=== PATIENT | male | born 1970 | race Caucasian/White ===

== ENCOUNTER 2018-02-21 14:49 | Emergency (ER) | payer MEDICAID, OTHER ==
[2018-02-21] MEDS ORDERED: IBUPROFEN 600 MG TAB PO ONE (15:58)
--- NOTE | 2018-02-21 16:12 | EDPHY ---
H & P Time Seen by Provider: 02/21/18 15:56 HPI/ROS: CHIEF COMPLAINT: Right ankle pain HISTORY OF PRESENT ILLNESS: The patient is a [id number] male presents emergency department after stepping out of struck in rolling his right ankle. The patient states he felt his lateral ankle strike the ground and felt a pop. He now has severe lateral right ankle pain. He has benign able to ambulate on his ankle. No numbness or tingling. Patient previously fracture of his tibia but this did not require surgical repair. REVIEW OF SYSTEMS: My complete review of systems is negative except as mentioned in the HPI. Past Medical/Surgical History: Includes fracture tibia Smoking Status: Never smoked Physical Exam: Vitals noted General Appearance: Alert and no distress. Head: Pupils equal. Normal. Respiratory: No respiratory distress. Cardiac: regular rate and rhythm. Extremities: Patient has mild swelling over his right lateral malleolus. There is tenderness palpation over the right lateral malleolus. Mild calcaneal tenderness. No proximal tib-fib tenderness to palpation. No tenderness to the foot. Neurovascular intact distally. No laceration. Skin: No rashes or lesions. Neuro: Alert. Normal mood and affect. Constitutional: Initial Vital Signs Temperature (C) 36.7 C 02/21/18 14:51 Heart Rate 75 02/21/18 14:51 Respiratory Rate 20 02/21/18 14:51 Blood Pressure 127/85 H 02/21/18 14:51 O2 Sat (%) 97 02/21/18 14:51 O2 Delivery Mode Room Air Allergies/Adverse Reactions: No Known Allergies Allergy (Verified 02/21/18 14:51) Home Medications: Medication Instructions Recorded Hydrocodone/APAP 5/325 [[place] 1 - 2 tab PO Q4 #9 tab 02/21/18 5/325 (RX)] Medical Decision Making ED Course/Re-evaluation: In the emergency department I discussed possible etiologies with the patient. I answered all his questions. Right ankle x-ray was ordered. Right ankle x-ray: Please refer the dictated report by Dr. العلي. No acute fracture dislocated noted Discussed the results with the patient. Answered all his questions. He was given a Gerry boot. He is given crutches. He was instructed to be nonweightbearing until he follows up with Orthopedics. Differential Diagnosis: My differential includes but is not limited to fracture, dislocation, contusion , sprain, strain - Data Points Medications Given: Discontinued Medications Ibuprofen (Motrin) 600 mg PO EDNOW ONE Stop: 02/21/18 15:59 Last Admin: 02/21/18 16:00 Dose: 600 mg Departure - Departure Disposition: Home, Routine, Self-Care Clinical Impression: Right ankle sprain Qualifiers: Encounter type: initial encounter Involved ligament of ankle: deltoid ligament Qualified Code(s): S93.421A - Sprain of deltoid ligament of right ankle, initial encounter Condition: Good Instructions: Ankle Sprain (ED) Additional Instructions: You need to call Orthopedics on Thursday morning to make an appointment. Wear your splint and use crutches as needed for pain. Your x-ray did not show any broken bones. Referrals: Esa Rodriguez MD [Medical Doctor] - 5-7 days, call for appt. Prescriptions: Hydrocodone/APAP 5/325 [[place] 5/325 (RX)] 1 - 2 tab PO Q4 #9 tab
[2018-02-21 16:48] VITALS: BP 117/81
== END 2018-02-21 16:51 | disposition home or self-care (01) ==
DX: S93.421A Sprain of deltoid ligament of right ankle, initial encounter (principal); W22.8XXA Striking against or struck by other objects, initial encounter; Y99.8 Other external cause status; Y93.89 Activity, other specified
CPT/HCPCS: L4386

== ENCOUNTER 2018-11-20 08:13 | Emergency (ER) | payer MEDICAID, OTHER ==
[2018-11-20] MEDS ORDERED: NS 1,000 ML IV ONE ×2 (09:06)
[2018-11-20] MEDS ORDERED: ONDANSETRON 4 MG/2 ML VIAL IVP ONE (09:06)
--- NOTE | 2018-11-20 09:06 | EDPHY ---
H & P Stated Complaint: N/V/V ABD PAIN Time Seen by Provider: 11/20/18 08:55 HPI/ROS: CHIEF COMPLAINT: Nausea vomiting diarrhea HISTORY OF PRESENT ILLNESS: 47-year-old male in the ER with his daughter is sick with similar symptoms. They both ate same food from same restaurant last evening. Approximately midnight he woke with multiple episodes of nausea, vomiting, diarrhea with diffuse nonspecific abdominal cramping. Denies: Fever, chills, recent antibiotic use, international travel, untreated water sources PRIMARY CARE PROVIDER: Dr. Pascual Sumner REVIEW OF SYSTEMS: 10 systems reviewed and negative with the exception of the elements mentioned in the history of present illness PAST MEDICAL & SURGICAL HISTORY: No pertinent medical or surgical history SOCIAL HISTORY: Nonsmoker PHYSICAL EXAM (Prior to examination, patient consented to physical exam, hands were washed and my usual and customary physical exam procedures followed) 1) GENERAL: Well-developed, well-nourished, alert and oriented. Appears uncomfortable, retching with emesis basin held to his mouth. 2) HEAD: Normocephalic, atraumatic 3) HEENT: Pupils equal, round, reactive to light bilaterally. Sclera anicteric. Nasopharynx, oropharynx, clear, no lesions. Moist Mucous membranes. 4) NECK: Full range of motion, no meningeal signs. 5) LUNGS: Clear auscultation bilaterally, no wheezes, no rhonchi, no retractions. 6) HEART: Regular rate and rhythm, no murmur, no heave, no gallop. 7) ABDOMEN: diffusely tender to palpation all quadrants with light touch, negative peritoneal sign 8) MUSCULOSKELETAL: Moving all extremities, no focal areas of tenderness, no obvious trauma. No peripheral edema or discoloration. 9) BACK: No CVA tenderness, no midline vertebral tenderness, no fluctuance, no step-off, no obvious trauma, no visual or palpable abnormality. 10) SKIN: No rash, no petechiae. 11) Psychiatric: Patient is oriented X 3, there is no agitation. DIFFERENTIAL DIAGNOSIS: My differential diagnosis includes, but is not limited to, acute appendicitis, acute cholecystitis, bowel obstruction, acute pancreatitis,, gastritis and urinary tract infection. The patient understands that this diagnosis is provisional and can never be 100% accurate. This is a partial list of diagnoses considered. These considerations are based on history , physical exam, past history and reassessment. - Personal History Current Tetanus/Diphtheria Vaccine: Yes - Medical/Surgical History Hx Asthma: No Hx Chronic Respiratory Disease: No Hx Diabetes: No Hx Cardiac Disease: No Hx Renal Disease: No Hx Cirrhosis: No Hx Alcoholism: No Hx HIV/AIDS: No Hx Splenectomy or Spleen Trauma: No Other PMH: none - Social History Smoking Status: Never smoked Constitutional: Initial Vital Signs Temperature (C) 36.9 C 11/20/18 08:23 Heart Rate 95 11/20/18 08:23 Respiratory Rate 16 11/20/18 08:23 Blood Pressure 132/79 H 11/20/18 08:23 O2 Sat (%) 95 11/20/18 08:23 O2 Delivery Mode Room Air Allergies/Adverse Reactions: No Known Allergies Allergy (Verified 02/21/18 14:51) Home Medications: Medication Instructions Recorded Hydrocodone/APAP 5/325 [[place] 1 - 2 tab PO Q4 #9 tab 02/21/18 5/325 (RX)] Ondansetron Odt [Zofran Odt] 4 mg PO Q4PRN PRN #10 tab 11/20/18 Medical Decision Making ED Course/Re-evaluation: 9:05 a.m.: Will administer IV fluids, check laboratory studies and re- evaluate. Care of patient under supervision of secondary supervising physician Dr Irwin with whom I discussed case. Re-evaluation. He is feeling improvement. He is tolerating oral intake. I re- examined his abdomen which is soft no guarding no rebound. Doubt acute surgical abdominal pathology. Doubt acute appendicitis. Doubt acute cholecystitis. I do not think that imaging studies indicated at this time. Plan will be discharge home with antiemetic, my usual and customary abdominal precautions and instructions. All questions and concerns addressed by myself. Feels comfortable being discharged. - Data Points Laboratory Results: Laboratory Results 11/20/18 09:15 11/20/18 09:15 11/20/18 11/20/18 09:15 09:15 WBC 12.73 10^3/uL H 10^3/uL (3.80-9.50) RBC 5.39 10^6/uL 10^6/uL (4.40-6.38) Hgb 16.2 g/dL g/dL (13.7-17.5) Hct 48.1 % % (40.0-51.0) MCV 89.2 fL fL (81.5-99.8) MCH 30.1 pg pg (27.9-34.1) MCHC 33.7 g/dL g/dL (32.4-36.7) RDW 12.2 % % (11.5-15.2) Plt Count 214 10^3/uL 10^3/uL (150-400) MPV 10.8 fL fL (8.7-11.7) Neut % (Auto) 93.0 % H % (39.3-74.2) Lymph % (Auto) 2.7 % L % (15.0-45.0) Mcpherson % (Auto) 3.8 % L % (4.5-13.0) Eos % (Auto) 0.0 % L % (0.6-7.6) Baso % (Auto) 0.2 % L % (0.3-1.7) Nucleat RBC Rel Count 0.0 % % (0.0-0.2) Absolute Neuts (auto) 11.84 10^3/uL H 10^3/uL (1.70-6.50) Absolute Lymphs (auto) 0.34 10^3/uL L 10^3/uL (1.00-3.00) Absolute Monos (auto) 0.48 10^3/uL 10^3/uL (0.30-0.80) Absolute Eos (auto) 0.00 10^3/uL L 10^3/uL (0.03-0.40) Absolute Basos (auto) 0.03 10^3/uL 10^3/uL (0.02-0.10) Absolute Nucleated RBC 0.00 10^3/uL 10^3/uL (0-0.01) Immature Gran % 0.3 % % (0.0-1.1) Immature Gran # 0.04 10^3/uL 10^3/uL (0.00-0.10) RBC/WBC/PLT Morphology TNP Platelet Estimate TNP Sodium 139 mEq/L mEq/L (135-145) Potassium 4.7 mEq/L mEq/L (3.5-5.2) Chloride 110 mEq/L mEq/L (97-110) Carbon Dioxide 23 mEq/l mEq/l (22-31) Anion Gap 6 mEq/L mEq/L (6-14) BUN 21 mg/dL mg/dL (7-23) Creatinine 0.9 mg/dL mg/dL (0.7-1.3) Estimated GFR > 60 Glucose 161 mg/dL H mg/dL (70-100) Calcium 8.9 mg/dL mg/dL (8.5-10.4) Total Bilirubin 0.9 mg/dL mg/dL (0.1-1.4) Conjugated Bilirubin 0.4 mg/dL mg/dL (0.0-0.5) Unconjugated Bilirubin 0.5 mg/dL mg/dL (0.0-1.1) AST 27 IU/L IU/L (17-59) ALT 43 IU/L IU/L (21-72) Alkaline Phosphatase 50 IU/L IU/L (38-126) Total Protein 7.3 g/dL g/dL (6.3-8.2) Albumin 4.3 g/dL g/dL (3.5-5.0) Lipase 165 IU/L IU/L (23-300) Medications Given: Discontinued Medications Sodium Chloride (Ns) 1,000 mls @ 0 mls/hr IV EDNOW ONE; Wide Open PRN Reason: Protocol Stop: 11/20/18 09:07 Last Admin: 11/20/18 09:20 Dose: 1,000 mls Sodium Chloride (Ns) 1,000 mls @ 0 mls/hr IV EDNOW ONE; Wide Open PRN Reason: Protocol Stop: 11/20/18 09:07 Last Admin: 11/20/18 09:20 Dose: 1,000 mls Ondansetron HCl (Zofran) 4 mg IVP EDNOW ONE Stop: 11/20/18 09:07 Last Admin: 11/20/18 09:20 Dose: 4 mg Departure - Departure Disposition: Home, Routine, Self-Care Clinical Impression: Nausea vomiting and diarrhea, Volume depletion Condition: Good Instructions: Acute Nausea and Vomiting (ED) Additional Instructions: Seek immediate medical attention if you develop new or worsening symptoms, if you develop fevers, chills, inability to tolerate oral intake or any other symptoms that concerns you. Referrals: Pascual Sumner MD [Primary Care Provider] - 1-2 days without fail Prescriptions: Ondansetron Odt [Zofran Odt] 4 mg PO Q4PRN PRN #10 tab PRN Reason: Nausea
[2018-11-20 09:32] LABS: PLATELET COUNT 214 10^3/uL (150-400)
[2018-11-20 10:18] VITALS: BP 113/81
== END 2018-11-20 11:01 | disposition home or self-care (01) ==
DX: R11.2 Nausea with vomiting, unspecified (principal); R19.7 Diarrhea, unspecified; E86.9 Volume depletion, unspecified
CPT/HCPCS: 96374; J2405